=== PATIENT | male | born 1980 | race Caucasian/White ===

== ENCOUNTER 2023-09-20 19:05 | Emergency (ER) | payer OTHER ==
[~2023-09-20] VITALS: Ht 180.3 cm; Wt 100.0 kg
[2023-09-20 19:09] VITALS: PULSE 98
[2023-09-20 19:19] VITALS: BP 147/98; RESP 14; TEMP 98.4; O2SAT 97
[2023-09-20] MEDS ORDERED: CEFTRIAXONE SODIUM 1 G/VIAL IM ONE (20:45)
[2023-09-20] MEDS ORDERED: BACITRACIN ZINC OINT UDPKT TOP ONE (20:45)
[2023-09-20] MEDS ORDERED: TETANUS, DIPHTHERIA, PERTUSSIS VAC/PF 0.5ML (>10YR OLD) IM ONE (20:45)
[2023-09-20] MEDS ORDERED: LIDOCAINE HCL/PF 1% 10 MG/ML 5ML VIAL INFIL ONE (20:45)
[2023-09-20] MEDS ORDERED: DOXY-244 MT (21:16)
== END 2023-09-20 23:04 | disposition home or self-care (01) ==
LOC: ER 19:24
DX: A64 Unspecified sexually transmitted disease (principal); N45.4 Abscess of epididymis or testis
CPT/HCPCS: 90715; 10060; 90471; 96372; 99284; J0696; J3490; Z7610 ×2